=== PATIENT | male | born 1990 | race African-American/Black ===

== ENCOUNTER 2019-01-12 18:26 | Emergency (ER) | payer SELFPAY ==
[~2019-01-12] VITALS: Ht 182.9 cm; Wt 93.0 kg
[2019-01-12] MEDS ORDERED: LANTUS SOL100 UNIT/1 SUBQ ×2 (18:48→22:03)
[2019-01-12 18:50] VITALS: BP 115/72
--- NOTE | 2019-01-12 18:53 | NUR ---
ED Nurse Note: pt walked in to ED due to left hip pain. no recent injury. pt just moved to [place]. unable to take insulin for 1 week. BS high in glucometer. AAO x 4. respirations even and non-labored noted. skin warm to touch. no open wound. denies n/v or abdominal pain. hx of DKA. on plumbing and heating mechanic. will wait for the further order.
[2019-01-12 19:05] VITALS: BP 113/61
--- NOTE | 2019-01-12 19:05 | NUR ---
ED Nurse Note: RECEIVED PT FROM [facility]. PATIENT RESTING COMFORTABLY IN BED. IV ACCESS ESTABLISHED. BLOOD AND URINE COLLECTED; SENT DOWN TO LAB. VSS.
[2019-01-12 19:14] LABS: BASOPHILS % (AUTO) 1.1 % (0.0-2.0); EOSINOPHILS % (AUTO) 1.4 % (0.0-3.0); HEMATOCRIT 39.7 % (42.0-52.0); HEMOGLOBIN 12.6 G/DL (14.2-18.0); LYMPHOCYTES % (AUTO) 36.1 % (20.0-45.0); MEAN CORPUSCULAR VOLUME 81 FL (80-99); MONOCYTES % (AUTO) 7.4 % (1.0-10.0); PLATELET COUNT 210 K/UL (150-450); RED BLOOD COUNT 4.93 M/UL (4.70-6.10); RED CELL DISTRIBUTION WIDTH 12.3 % (11.6-14.8); WHITE BLOOD COUNT 4.1 K/UL (4.8-10.8)
[2019-01-12 19:16] LABS: APPEARANCE,URINE CLEAR; BILIRUBIN, URINE NEGATIVE (NEGATIVE); COLOR,URINE PALE YELLOW; GLUCOSE, URINE (UA) NEGATIVE (NEGATIVE); KETONES,URINE 1+ (NEGATIVE); LEUKOCYTE ESTERASE ,URINE NEGATIVE (NEGATIVE); NITRITE,URINE NEGATIVE (NEGATIVE); PH,URINE 6 (4.5-8.0); PROTEIN,URINE 1+ (NEGATIVE); UROBILINOGEN,URINE NORMAL MG/DL (0.0-1.0)
[2019-01-12 19:28] LABS: ALANINE AMINOTRANSFERASE 79 U/L (12-78); ALKALINE PHOSPHATASE 281 U/L (46-116); ANION GAP 9 mmol/L (5-15); ASPARTATE AMINO TRANSFERASE 136 U/L (15-37); BILIRUBIN,TOTAL 0.1 MG/DL (0.2-1.0); BLOOD UREA NITROGEN 10 mg/dL (7-18); CALCIUM 8.8 MG/DL (8.5-10.1); CARBON DIOXIDE 27 MMOL/L (21-32); CHLORIDE 96 MMOL/L (98-107); CREATININE 1.5 MG/DL (0.55-1.30); POTASSIUM 4.3 MMOL/L (3.5-5.1); SODIUM 132 MMOL/L (136-145)
[2019-01-12] MEDS: Insulin Human Regular 100units/ml 3ml IV ONE (19:55)
--- NOTE | 2019-01-12 21:10 | NUR ---
ED Nurse Note: imaging at bedside.
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
[2019-01-12 22:05] VITALS: BP 113/61
--- NOTE | 2019-01-12 22:05 | NUR ---
ER DISCHARGE NOTE: Patient is cleared to be discharged per ERMD, pt is aox4, on room air, with stable vital signs. pt was given dc and prescription instructions, pt was able to verbalize understanding, pt id band and iv site removed without complications. pt is able to ambulate with steady gait. pt took all belongings.
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
== END 2019-01-12 22:05 | disposition home or self-care (01) ==
LOC: EMR 19:02
DX: E11.65 Type 2 diabetes mellitus with hyperglycemia (principal); M25.552 Pain in left hip
CPT/HCPCS: 36415; 73502; 80053; 81003; 82009; 83735; 85025; 96361; 96374; 99284; J1815